=== PATIENT | female | born 1955 | race Caucasian/White ===

== ENCOUNTER 2016-07-22 10:35 | Outpatient (CLI) | payer OTHER ==
--- NOTE | 2016-07-22 11:32 | DIAGNOSTIC IMAGING REPORT ---
PROCEDURE: DEXA BONE DENSITY STUDY CLINICAL INDICATION: SCREENING COMPARISON: None. FINDINGS: LUMBAR SPINE: Bone mineral density 1.241 g/cm2, T score 1.8 normal which represents a 1% decrease from the previous study LEFT HIP: Bone mineral density 1.077 g/cm2, T score 1.1 normal which represents a 1.8% decrease from the previous study LEFT FEMORAL NECK: Bone mineral density 0.929 g/cm2, T score 0.7 normal which represents a 2.7% decrease from the previous study FRACTURE RISK CALCULATION ( when applicable): 10-year fracture risk of a major osteoporotic fracture and of a hip fracture not reported because all T-scores at or above -1.0 (T score greater or equal to -1.0 to: NORMAL) (T score from -1.1 to -2.4: OSTEOPENIA) (T score ess than or equal to -2.5: OSTEOPOROSIS) IMPRESSION: 1. Normal spine hip and femoral neck
--- NOTE | 2016-07-22 12:19 | DIAGNOSTIC IMAGING REPORT ---
PROCEDURE: XR UPPER GI WITH AIR INDICATION: Reflux symptoms. History of Gonzalez's esophagus. TECHNIQUE: Double contrast study. Fluoroscopy time, 4.1 minutes; 2242.42 mGy. 63 fluoroscopic images (including cinefluoroscopy). COMPARISON: None. FINDINGS: Pharyngoesophagus is normal. Small sliding hiatal hernia. Patulous gastroesophageal junction with moderate gastroesophageal reflux. Esophagus is otherwise normal. No constricting or polypoid lesions. Stomach and duodenum are normal. IMPRESSION: 1. Small sliding hiatal hernia. 2. Patulous gastroesophageal junction with moderate reflux. 3. Otherwise negative upper GI. 4. Findings discussed with the patient and called to Dr. Connor.
--- NOTE | 2016-07-22 12:41 | DIAGNOSTIC IMAGING REPORT ---
PROCEDURE: MG BILATERAL SCREENING W/CAD INDICATION: Screening. Family history breast carcinoma (great grandmother). TECHNIQUE: Bilateral CC and MLO digital views. COMPARISON: None available (unknown). FINDINGS: Computer-aided detection applied. Moderately dense with a few dystrophic calcifications. There is a 12 asymmetric density in the lateral left breast (seen on CC view, difficult to visualize on MLO view). IMPRESSION: 1. There is a 12 mm asymmetric parenchymal mass in the lateral left breast. While this may represent normal tissue, underlying mass or architectural distortion might be considered. Further mammographic views (true lateral view, CC and MLO spot compression views) recommended. In addition, left breast ultrasound is recommended. . RESULT CODE: 0- Incomplete; needs additional evaluation. A. A negative report should not delay biopsy if a dominant or clinically suspicious mass is present. 10-15% of cancers are not identified by x-ray. B. A negative report may reinforce clinical impression. C. Adenosis and dense breasts may obscure an underlying neoplasm. D. False positive reports average 6-10%. E.. A yearly screening mammogram is recommended. A reminder letter will be scheduled.
== END 2016-07-22 23:00 ==
LOC: MAM SRH 10:35
DX: Z13.820 Encounter for screening for osteoporosis (principal); Z12.31 Encounter for screening mammogram for malignant neoplasm of breast; K44.9 Diaphragmatic hernia without obstruction or gangrene; K21.9 Gastro-esophageal reflux disease without esophagitis

== ENCOUNTER 2016-08-05 10:56 | Outpatient (CLI) | payer OTHER ==
--- NOTE | 2016-08-05 11:47 | DIAGNOSTIC IMAGING REPORT ---
PROCEDURE: MG UNILATERAL DIAG-LT W/CAD INDICATION: ABNORMAL MAMMO DONE 07/22/16 TECHNIQUE: True lateral digital view of the left breast. In addition, spot compression CC and MLO views were obtained of the upper outer and lower left breast (region of clinical concern). Finally, high-resolution left breast ultrasound was performed (18 mHz). COMPARISON: Comparison is made to screening mammogram study on 07/22/2016. FINDINGS: MAMMOGRAM: Computer-aided detection applied. Moderately dense parenchyma with a few dystrophic calcifications. There is no evidence of mass or architectural distortion. BREAST ULTRASOUND: Normal parenchyma. No evidence of mass or cyst. IMPRESSION: 1. Negative mammogram and negative left breast ultrasound. 2. Resume routine screening schedule (July 2017). 3. Findings discussed with the patient. RESULT CODE: 1- Negative. A. A negative report should not delay biopsy if a dominant or clinically suspicious mass is present. 10-15% of cancers are not identified by x-ray. B. A negative report may reinforce clinical impression. C. Adenosis and dense breasts may obscure an underlying neoplasm. D. False positive reports average 6-10%. E.. A yearly screening mammogram is recommended. A reminder letter will be scheduled.
== END 2016-08-05 23:00 ==
LOC: MAM SRH 10:56
DX: R92.2 Inconclusive mammogram (principal)

== ENCOUNTER 2016-10-02 13:11 | Emergency (ER) | payer OTHER ==
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
--- NOTE | 2016-10-02 14:51 | ED ORDER SUMMARY ---
..... Patient: RIDDHI EPPS OrderSheet [facility] VisitID: [id number] [place] [address] 61y, F Registration Date/Time: 10/02/2016 ORDER SHEET Weight: 74.8 kg (stated) Allergies: Lexapro, Toradol, NSAIDs GENERAL ORDERS: CBC w Diff Urgent (13:32 10/02/2016 HBivens A.R.N.P.) (Ack 13:33 OHernandez) (13:49 SBalde R.N.) CMP Urgent (13:32 10/02/2016 HBivens A.R.N.P.) (Ack 13:33 OHernandez) (13:49 SBalde R.N.) UA-Culture if indicated Urgent (13:32 10/02/2016 HBivens A.R.N.P.) (Ack 13:33 OHadalnandez) (Cancelled: Physician Order14:58 SBalde R.N.) Amylase Urgent (13:32 10/02/2016 HBivens A.R.N.P.) (Ack 13:33 OHernandez) (13:49 SBalde R.N.) Lipase Urgent (13:32 10/02/2016 HBivens A.R.N.P.) (Ack 13:33 OHernandez) (13:49 SBalde R.N.) MEDICATION ORDERS: GI Cocktail WHITE PO 30 mL with Lidocaine Viscous Mouth/Throat 15 mL, Maalox Plus Oral 15 mL (13:32 10/02/2016 HBivens A.R.N.P.) (13:50 SBalde R.N.) K-Dur PO 20 meq (Do not crush or chew, NOW) (14:35 10/02/2016 HBivens A.R.N.P.) (14:42 SBalde R.N.) Protonix PO 40 mg (NOW) (14:57 10/02/2016 SBalde R.N. verbal order read back to HBivens A.R.N.P.) (14:58 SBalde R.N.) IV FLUIDS: Zofran IV 4 mg (NOW) (13:32 10/02/2016 HBivens A.R.N.P.) (13:49 SBalde R.N.) IV Saline Lock (13:32 10/02/2016 HBivens A.R.N.P.) (13:41 SBalde R.N.) Protonix IVP 40mg 40 mg (Mix in NS 10ml over 2min) (14:51 10/02/2016 HBivens A.R.N.P.) (Cancelled: Change in patient [id number] SBalde R.N.) ORDER SHEET NOTES: [Electronically signed by Claudette Pena R.N. (15:17 10/02/2016)] [Electronically signed by Domenica GunnR.N.P. (18:37 10/02/2016)] [Electronically locked/signed by Claudette Pena R.N. (15:17 10/02/2016)]
--- NOTE | 2016-10-02 14:51 | ED ORDER SUMMARY ---
..... Patient: RIDDHI EPPS OrderSheet [facility] VisitID: [id number] [place] [address] 61y, F Registration Date/Time: 10/02/2016 ORDER SHEET Weight: 74.8 kg (stated) Allergies: Lexapro, Toradol, NSAIDs GENERAL ORDERS: CBC w Diff Urgent (13:32 10/02/2016 HBivens A.R.N.P.) (Ack 13:33 OHernandez) (13:49 SBalde R.N.) CMP Urgent (13:32 10/02/2016 HBivens A.R.N.P.) (Ack 13:33 OHernandez) (13:49 SBalde R.N.) UA-Culture if indicated Urgent (13:32 10/02/2016 HBivens A.R.N.P.) (Ack 13:33 OHadalnandez) (Cancelled: Physician Order14:58 SBalde R.N.) Amylase Urgent (13:32 10/02/2016 HBivens A.R.N.P.) (Ack 13:33 OHernandez) (13:49 SBalde R.N.) Lipase Urgent (13:32 10/02/2016 HBivens A.R.N.P.) (Ack 13:33 OHernandez) (13:49 SBalde R.N.) MEDICATION ORDERS: GI Cocktail WHITE PO 30 mL with Lidocaine Viscous Mouth/Throat 15 mL, Maalox Plus Oral 15 mL (13:32 10/02/2016 HBivens A.R.N.P.) (13:50 SBalde R.N.) K-Dur PO 20 meq (Do not crush or chew, NOW) (14:35 10/02/2016 HBivens A.R.N.P.) (14:42 SBalde R.N.) Protonix PO 40 mg (NOW) (14:57 10/02/2016 SBalde R.N. verbal order read back to HBivens A.R.N.P.) (14:58 SBalde R.N.) IV FLUIDS: Zofran IV 4 mg (NOW) (13:32 10/02/2016 HBivens A.R.N.P.) (13:49 SBalde R.N.) IV Saline Lock (13:32 10/02/2016 HBivens A.R.N.P.) (13:41 SBalde R.N.) Protonix IVP 40mg 40 mg (Mix in NS 10ml over 2min) (14:51 10/02/2016 HBivens A.R.N.P.) (Cancelled: Change in patient [id number] SBalde R.N.) ORDER SHEET NOTES: [Electronically signed by Claudette Pena R.N. (15:17 10/02/2016)] [Electronically signed by Domenica GunnR.N.P. (18:37 10/02/2016)] [Electronically locked/signed by Claudette Pena R.N. (15:17 10/02/2016)]
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
--- NOTE | 2016-10-02 18:37 | ED MAR SUMMARY ---
..... Medication Administration Record [facility] [address] [place] [address] Patient: RIDDHI EPPS Visit ID: [id number] 61y, F Weight: 74.8 kg Height/Length: 65 in BMI: 27.5 ALLERGIES: NSAIDs, Lexapro, Toradol Given 13:49 10/02/2016 Claudette Pena R.N. Medication Administered: ZOFRAN [IVP] (ONDANSETRON HCL), Dose: 4 mg IVP over 2 minute(s), Site: #1 left AC. Medication Ordered: Zofran IV 4 mg (NOW). Given 13:49 10/02/2016 Claudette Pena R.N. Medication Administered: MAALOX [PO] (MAGNESIUM-ALUMINUM), Dose: 30 mL Oral Suspension PO. Medication Ordered: GI Cocktail WHITE PO 30 mL with Lidocaine Viscous Mouth/Throat 15 mL, Maalox Plus Oral 15 mL. Given 14:41 10/02/2016 Claudette Pena R.N. Medication Administered: K-DUR [PO] (POTASSIUM CHLORIDE BENJAMIN ER), Dose: 20 meq PO. Medication Ordered: K-Dur PO 20 meq (Do not crush or chew, NOW). Given 14:58 10/02/2016 Claudette Pena R.N. Medication Administered: PROTONIX [PO] (PANTOPRAZOLE SODIUM), Dose: 40 mg PO. Medication Ordered: Protonix PO 40 mg (NOW).
--- NOTE | 2016-10-02 18:37 | ED MED RECONCILIATION SUMMARY ---
Patient: RIDDHI EPPS Medication Reconciliation Report [facility] VisitID: [id number] [address] [place] [address] 61y, F Registration Date/Time: 10/02/2016 Weight: 74.8 kg Height/Length: 65 in. BMI: 27.5 ALLERGIES: Lexapro, NSAIDs, Toradol The patient's Home Medications are listed below: THE FOLLOWING MEDICATIONS NEED TO BE RECONCILED: Gabapentin Oral 800mg , 3x a day, out of this med Omeprazole Oral 20 mg, daily The source(s) of the original Home Medication information: patient The following Medications were given to the patient in the Emergency Department: Zofran [IVP] IVP 4 mg, administered: 10/02/2016 1:49:00 PM Maalox [PO] PO 30 mL, administered: 10/02/2016 1:49:00 PM K-DUR [PO] PO 20 meq, administered: 10/02/2016 2:41:00 PM Protonix [PO] PO 40 mg, administered: 10/02/2016 2:58:00 PM The following Medications were prescribed to the patient: Zofran 4 mg: Take 1 orally every six hours as needed for nausea/vomiting. Dispense ten (10). No refills. Substitution is permissible. -- Domenica Gunn, A.R.N.P. Carafate 1 gm tablets: take 1 orally four times daily (1 hour before meals and at bedtime). Dispense sixty (60). No refills. Substitution is permissible. -- Domenica Gunn, A.R.N.P.
--- NOTE | 2016-10-02 18:37 | ED MAR SUMMARY ---
..... Medication Administration Record [facility] [address] [place] [address] Patient: RIDDHI EPPS Visit ID: [id number] 61y, F Weight: 74.8 kg Height/Length: 65 in BMI: 27.5 ALLERGIES: NSAIDs, Lexapro, Toradol Given 13:49 10/02/2016 Claudette Pena R.N. Medication Administered: ZOFRAN [IVP] (ONDANSETRON HCL), Dose: 4 mg IVP over 2 minute(s), Site: #1 left AC. Medication Ordered: Zofran IV 4 mg (NOW). Given 13:49 10/02/2016 Claudette Pena R.N. Medication Administered: MAALOX [PO] (MAGNESIUM-ALUMINUM), Dose: 30 mL Oral Suspension PO. Medication Ordered: GI Cocktail WHITE PO 30 mL with Lidocaine Viscous Mouth/Throat 15 mL, Maalox Plus Oral 15 mL. Given 14:41 10/02/2016 Claudette Pena R.N. Medication Administered: K-DUR [PO] (POTASSIUM CHLORIDE BENJAMIN ER), Dose: 20 meq PO. Medication Ordered: K-Dur PO 20 meq (Do not crush or chew, NOW). Given 14:58 10/02/2016 Claudette Pena R.N. Medication Administered: PROTONIX [PO] (PANTOPRAZOLE SODIUM), Dose: 40 mg PO. Medication Ordered: Protonix PO 40 mg (NOW).
--- NOTE | 2016-10-02 18:37 | ED MED RECONCILIATION SUMMARY ---
Patient: RIDDHI EPPS Medication Reconciliation Report [facility] VisitID: [id number] [address] [place] [address] 61y, F Registration Date/Time: 10/02/2016 Weight: 74.8 kg Height/Length: 65 in. BMI: 27.5 ALLERGIES: Lexapro, NSAIDs, Toradol The patient's Home Medications are listed below: THE FOLLOWING MEDICATIONS NEED TO BE RECONCILED: Gabapentin Oral 800mg , 3x a day, out of this med Omeprazole Oral 20 mg, daily The source(s) of the original Home Medication information: patient The following Medications were given to the patient in the Emergency Department: Zofran [IVP] IVP 4 mg, administered: 10/02/2016 1:49:00 PM Maalox [PO] PO 30 mL, administered: 10/02/2016 1:49:00 PM K-DUR [PO] PO 20 meq, administered: 10/02/2016 2:41:00 PM Protonix [PO] PO 40 mg, administered: 10/02/2016 2:58:00 PM The following Medications were prescribed to the patient: Zofran 4 mg: Take 1 orally every six hours as needed for nausea/vomiting. Dispense ten (10). No refills. Substitution is permissible. -- Domenica Gunn, A.R.N.P. Carafate 1 gm tablets: take 1 orally four times daily (1 hour before meals and at bedtime). Dispense sixty (60). No refills. Substitution is permissible. -- Domenica Gunn, A.R.N.P.
--- NOTE | 2016-10-02 18:37 | ED DISCHARGE INSTRUCTIONS ---
Patient: RIDDHI EPPS General Instructions [facility] VisitID: [id number] [place] [address] 61y, F Registration Date/Time: 10/02/2016 Acute generalized abdominal pain. INSTRUCTIONS Avoid alcohol. Avoid fatty, fried/greasy and spicy foods. Warnings: GENERAL WARNINGS: Return or contact your physician immediately if your condition worsens or changes unexpectedly, if not improving as expected, or if other problems arise. SPECIFICALLY, return if you develop pain in the abdomen or pelvis, fever, the inability to keep fluids down, blood in vomitus, blood in diarrhea, fainting or lightheadedness. Prescription Medications: Zofran 4 mg: Take 1 orally every six hours as needed for nausea/vomiting. Dispense ten (10). No refills. Substitution is permissible. Carafate 1 gm tablets: take 1 orally four times daily (1 hour before meals and at bedtime). Dispense sixty (60). No refills. Substitution is permissible. Follow-up: Follow up with your doctor in about two days even if well. Call for an appointment. Summary of care provided to patient. Understanding of the discharge instructions verbalized by patient. ADDITIONAL INFORMATION Abdominal Pain, Unknown Cause (Female) The exact cause of your abdominal (stomach) pain is not certain. This does not mean that this is something to worry about, or the right tests were not done. Everyone likes to know the exact cause of the problem, but sometimes with abdominal pain, there is no clear-cut cause, and this could be a good thing. The good news is that your symptoms can be treated, and you will feel better. Your condition does not seem serious now; however, sometimes the signs of a serious problem may take more time to appear. For this reason,it is important for you to watch for any new symptoms, problems,or worsening of your condition. Over the next few days, the abdominal pain may come and go, or be continuous. Other common symptoms can include nausea and vomiting. Sometimes it can be difficult to tell if you feel nauseous, you may just feel bad and not associate that feeling with nausea. Constipation, diarrhea, and a fever may go along with the pain. The pain may continue even if treated correctly over the following days. Depending on how things go, sometimes the cause can become clear and may require further or different treatment. Additional evaluations, medications, or tests may be needed. Home care Your health care provider may prescribe medications for pain, symptoms, or an infection. Follow the health care provider's instructions for taking these medications. General care Rest until your next exam. No strenuous activities. Try to find positions that ease discomfort. A small pillow placed on the abdomen may help relieve pain. Something warm on your abdomen (such as a heating pad) may help, but be careful not to burn yourself. Diet Do not force yourself to eat, especially if having cramps, vomiting, or diarrhea. Water is important so you do not get dehydrated. Soup may also be good. Sports drinks may also help, especially if they are not too acidic. Make sure you don't drink sugary drinks as this can make things worse. Take liquids in small amounts. Do not guzzle them. Caffeine sometimes makes the pain and cramping worse. Avoid dairy products if you have vomiting or diarrhea. Don't eat large amounts at a time. Wait a few minutes between bites. Eat a diet low in fiber (called a low-residue diet). Foods allowed include refined breads, white rice, fruit and vegetable juices without pulp, tender meats. These foods will pass more easily through the intestine. Avoid whole-grain foods, whole fruits and vegetables, meats, seeds and nuts, fried or fatty foods, dairy, alcohol and spicy foods until your symptoms go away. Follow-up care Follow up with your health care provider as instructed, or if your pain does not begin to improve in the next 24 hours. When to seek medical care Seek prompt medical care if any of the following occur: Pain gets worse or moves to the right lower abdomen New or worsening vomiting or diarrhea Swelling of the abdomen Unable to pass stool for more than three days Fever of 100.4F (38C) or higher, or as directed by your healthcare provider. Blood in vomit or bowel movements (dark red or black color) Jaundice (yellow color of eyes and skin) Weakness, dizziness Chest, arm, back, neck or jaw pain Unexpected vaginal bleeding or missed period Call 911 Call emergency services if any of the following occur: Trouble breathing Confusion Fainting or loss of consciousness Rapid heart rate Seizure Ondansetron Oral disintegrating tablet What is this medicine? ONDANSETRON (on ZULMA se kaushal) is used to treat nausea and vomiting caused by chemotherapy. It is also used to prevent or treat nausea and vomiting after surgery. How should I use this medicine? These tablets are made to dissolve in the mouth. Do not try to push the tablet through the foil backing. With dry hands, peel away the foil backing and gently remove the tablet. Place the tablet in the mouth and allow it to dissolve, then swallow. While you may take these tablets with water, it is not necessary to do so. Talk to your casting carrier regarding the use of this medicine in children. Special care may be needed. What side effects may I notice from receiving this medicine? Side effects that you should report to your doctor or health manager intensive care as soon as possible: allergic reactions like skin rash, itching or hives, swelling of the face, lips, or tongue breathing problems dizziness fast or irregular heartbeat feeling faint or lightheaded, falls fever and chills swelling of the hands and feet tightness in the chest Side effects that usually do not require medical attention (report to your doctor or health manager intensive care if they continue or are bothersome): constipation or diarrhea headache What may interact with this medicine? Do not take this medicine with any of the following medications: -apomorphine -cisapride -dofetilide -dronedarone -pimozide -thioridazine -ziprasidone This medicine may also interact with the following medications: -carbamazepine -phenytoin -rifampicin -tramadol -other medicines that prolong the QT interval (cause an abnormal heart rhythm) What if I miss a dose? If you miss a dose, take it as soon as you can. If it is almost time for your next dose, take only that dose. Do not take double or extra doses. Where should I keep my medicine? Keep out of the reach of children. Store between 2 and 30 degrees C (36 and 86 degrees F). Throw away any unused medicine after the expiration date. What should I tell my health care provider before I take this medicine? They need to know if you have any of these conditions: heart disease history of irregular heartbeat liver disease low levels of magnesium or potassium in the blood an unusual or allergic reaction to ondansetron, granisetron, other medicines, foods, dyes, or preservatives or trying to get breast-feeding What should I watch for while using this medicine? Check with your doctor or health manager intensive care as soon as you can if you have any sign of an allergic reaction. Sucralfate Oral tablet What is this medicine? SUCRALFATE (ROSIBEL kermit fate) helps to treat ulcers of the intestine. How should I use this medicine? Take this medicine by mouth with a glass of water. Follow the directions on the prescription label. This medicine works best if you take it on an empty stomach, 1 hour before meals. Take your doses at regular intervals. Do not take your medicine more often than directed. Do not stop taking except on your doctor's advice. Talk to your casting carrier regarding the use of this medicine in children. Special care may be needed. What side effects may I notice from receiving this medicine? Side effects that you should report to your doctor or health manager intensive care as soon as possible: allergic reactions like skin rash, itching or hives, swelling of the face, lips, or tongue difficulty breathing Side effects that usually do not require medical attention (report to your doctor or health manager intensive care if they continue or are bothersome): back pain constipation drowsy, dizzy dry mouth headache stomach upset, gas trouble sleeping What may interact with this medicine? antacid cimetidine digoxin ketoconazole phenytoin quinidine ranitidine some antibiotics like ciprofloxacin, norfloxacin, and ofloxacin theophylline thyroid hormones warfarin What if I miss a dose? If you miss a dose, take it as soon as you can. If it is almost time for your next dose, take only that dose. Do not take double or extra doses. Where should I keep my medicine? Keep out of the reach of children. Store at room temperature between 15 and 30 degrees C (59 and 86 degrees F). Keep container tightly closed. Throw away any unused medicine after the expiration date. What should I tell my health care provider before I take this medicine? They need to know if you have any of these conditions: kidney disease an unusual or allergic reaction to sucralfate, other medicines, foods, dyes, or preservatives or trying to get breast-feeding What should I watch for while using this medicine? Visit your doctor or health manager intensive care for regular check ups. Let your doctor know if your symptoms do not improve or if you feel worse. Antacids should not be taken within one half hour before or after this medicine. You have been given the following additional information: Abdominal Pain, Unknown Cause, (Female) Ondansetron Oral disintegrating tablet Sucralfate Oral tablet (Electronically signed by Domenica Gunn A.R.N.P. 10/02/2016 18:37)
== END 2016-10-02 15:15 | disposition home or self-care (01) ==
LOC: ED SRH 13:11
DX: R10.84 Generalized abdominal pain (principal); K21.9 Gastro-esophageal reflux disease without esophagitis; I10 Essential (primary) hypertension; Z88.8 Allergy status to other drugs, medicaments and biological substances; F17.210 Nicotine dependence, cigarettes, uncomplicated
CPT/HCPCS: 90100; 92235; 92530; 95059